=== PATIENT | male | born 1945 ===

== ENCOUNTER 2016-06-27 06:55 | Day surgery (SDC) | payer MEDICARE ==
[2016-01-05 12:04] VITALS: BMI 33.7
[2016-06-27] MEDS ORDERED: Midazolam 2 MG/2 ML VIAL ONE (09:31)
[2016-06-27] MEDS ORDERED: Propofol 10 mg/ml Inj (20 ML) ONE (09:31)
[2016-06-27] MEDS ORDERED: cefTRIAXone IV 1 gm in Dextros 50 ML IVPB ONE (09:32)
[2016-06-27] MEDS ORDERED: Gentamicin 160 MG in Sodium Chloride 0.9% 100 ML IVPB SCH (09:45)
[2016-06-27] MEDS ORDERED: Lidocaine 2% Jelly (Uro-Jet) ONE (09:52)
[2016-06-27] MEDS ORDERED: HYDROmorphone 0.5 mg/0.5 ml ISec IVP PRN (10:04)
[2016-06-27] MEDS ORDERED: Gentamicin 160 MG in Sodium Chloride 0.9% 100 ML IVPB ONE (10:15)
[2016-06-27] MEDS ORDERED: Lactated Ringer's 1,000 ML IV ONE (10:26)
--- NOTE | 2016-06-27 11:34 | OP ---
PROCEDURE DATE: 06/27/2016 PREOPERATIVE DIAGNOSIS: Elevated PSA 10.5. POSTOPERATIVE DIAGNOSIS: Elevated PSA 10.5. PROCEDURES: Transrectal ultrasound diagnostic, transrectal ultrasound guidance, and prostatic biopsy . SURGEON: Dr. Rolon OPERATIVE DICTATION: The patient reassured me via his son, who translated, in the holding area that he had not taken any NSAIDs for over 10 days. They were instructed that he has to take it easy for a few days postoperatively, that they need to call my office for a followup visit in 1 week and most i mportantly, if he develops high fever, chills, heavy bleeding or shakes, he is to immediately call me and if there is no immediate response from my office, go to the Emergency Room. The patient was bro ught to the operating room, placed under general anesthesia. He was premedicated with Rocephin 1 gra m and gentamicin 160 mg IV piggyback, placed in lithotomy position. Betadine was squirted into the r ectum as well. The transducer of the ultrasound machine was introduced and we were able to scan the prostate. There were no hypo focal areas and no areas of significant calcification. Total volume wa s 34.8 cm. We now proceeded to perform biopsy using the transducer as a guide. We divided the prost ate into 6 sextants and 2 biopsies were submitted from each sextant in 6 separate cups to pathology. We then maintained pressure for about 5 minutes with the transducer to promote hemostasis. Upon its removal, the area was dry and there was no active bleeding. The patient tolerated the procedure wel l. José Miguel Rolon MD cc: 66 TT: 06/27/2016 11:34:00 en
[2016-06-27 11:48] VITALS: PULSE 60; RESP 16
[2016-06-27 12:03] VITALS: BP 150/91; TEMP 97.7; O2SAT 98
== END 2016-06-27 12:08 | disposition home or self-care (01) ==
LOC: C.SDS 06:55
PROVIDERS: ATTEND Urology
DX: R97.20 Elevated prostate specific antigen [PSA] (principal)
CPT/HCPCS: 55700; 88305; 88342; J0696; J1580; J7120

== ENCOUNTER 2017-09-25 07:37 | Day surgery (SDC) | payer MEDICARE ==
[2017-09-19 10:29] VITALS: BMI 33.5
[~2017-09-25 07:37] MED LIST: ceFAZolin 1 gm FROZEN Premix 2 GM/100 ML ML IVPB ONE
[2017-09-25] MEDS ORDERED: Bupivacaine-Epi 0.5%-1:200,000 PF Inj IJ ONE (09:00)
[2017-09-25] MEDS ORDERED: Midazolam 2 MG/2 ML VIAL ONE (09:42)
[2017-09-25] MEDS ORDERED: Propofol 10 mg/ml Inj (20 ML) ONE (09:42)
[2017-09-25] MEDS ORDERED: Lactated Ringer's 1,000 ML IV ONE ×2 (09:45→11:20)
[2017-09-25] MEDS ORDERED: ePHEDrine 50 mg/ml Inj ONE (10:10)
[2017-09-25] MEDS ORDERED: Phenylephrine 10 mg/ml Inj ONE (10:55)
[2017-09-25] MEDS ORDERED: Neostigmine Methylsulfate 3mg/3ml Syringe IV ONE (11:05)
[2017-09-25] MEDS ORDERED: HYDROmorphone 0.5 mg/0.5 ml ISec IVP PRN (11:07)
--- NOTE | 2017-09-25 11:17 | PCM.SURG1 ---
Surgeon's Initial Post Op Note - Surgeon's Notes Surgeon: Dr. Richter Av Specialist: Eric Miramontes PGY2 Type of Anesthesia: General Endo, Local Pre-Operative Diagnosis: ventral hernia Operative Findings: ventral hernia 2x3cm Post-Operative Diagnosis: Same Operation Performed: ventral hernia repair with mesh Specimen/Specimens Removed: fat Estimated Blood Loss: EBL {In ML}: 10 Blood Products Given: N/A Drains Used: No Drains Post-Op Condition: Good Date of Surgery/Procedure: 09/25/17 Time of Surgery/Procedure: 11:17
[2017-09-25 13:41] VITALS: BP 129/77; PULSE 74; RESP 18; TEMP 97.8; O2SAT 97
--- NOTE | 2017-09-26 09:26 | OP ---
PROCEDURE DATE: 09/25/2017 PREOPERATIVE DIAGNOSIS: Incisional hernia. PROCEDURE CARRIED OUT: Repair of incisional hernia with mesh, the C-Qur 8-cm mesh. SURGEON: Aram Richter Jr., MD PATTERNMAKER: Eric Galindo. ANESTHESIOLOGIST: Mr. Main. INDICATIONS: The patient is an older man with a history of prostate surgery in the past who has an umbilical hernia, but through this the scope had been passed, and there is also an incisional hernia here. OPERATIVE FINDINGS: 1. There was no bowel contained in the hernia. 2. No bowel was involved or injured during the procedure. DESCRIPTION OF PROCEDURE: An 8 cm x 8 cm mesh, twice the size of the defect was placed here and sutured into position. It was a C-Qur mesh. This was then brought up against the abdominal wall and furled appropriately and in the appropriate position. The skin was then closed with subcuticular closure and Steri-Strips. Blood loss for the procedure was 10 mL. Operation carried out is repair of incisional hernia with mesh. rAam Richter Jr., MD cc:
== END 2017-09-25 13:55 | disposition home or self-care (01) ==
LOC: C.SDS 07:37
PROVIDERS: ATTEND Surgery Vascular Surgery
DX: K43.2 Incisional hernia without obstruction or gangrene (principal); I10 Essential (primary) hypertension; Z95.0 Presence of cardiac pacemaker; E78.5 Hyperlipidemia, unspecified
CPT/HCPCS: 49560; 49568; 88302; C1781; J0131; J0690; J2250; J2370; J2704; J2710; J3010; J7120